=== PATIENT | male | born 1965 ===

== ENCOUNTER 2024-04-19 16:01 | Emergency (ER) | payer OTHER ==
[~2024-04-19] VITALS: Ht 185.4 cm; Wt 109.1 kg
[2024-04-19 16:10] VITALS: BP 171/112; PULSE 84; RESP 18; TEMP 98.6
[2024-04-19] MEDS: IBUPROFEN 600 MG TABLET PO ONE (18:42)
[2024-04-19] MEDS: ACETAMINOPHEN 500 MG TABLET PO ONE (18:42)
== END 2024-04-19 20:57 | disposition left against medical advice (07) ==
LOC: EMS 16:01
DX: M25.561 Pain in right knee (principal); F17.210 Nicotine dependence, cigarettes, uncomplicated
CPT/HCPCS: 99283